=== PATIENT | male | born 1980 ===

== ENCOUNTER 2017-09-09 19:20 | Emergency (ER) | payer OTHER ==
[2017-09-09 19:38] VITALS: BP 142/73; PULSE 65; RESP 16; TEMP 97.5; O2SAT 100
--- NOTE | 2017-09-09 20:22 | ED PDOC ---
HPI: Abdomen Time Seen by Provider: 09/09/17 20:00 Chief Complaint (Nursing): Abdominal Pain Chief Complaint (Provider): abdominal pain History Per: Patient History/Exam Limitations: no limitations Onset/Duration Of Symptoms: Days, Waxing/Waning Current Symptoms Are (Timing): Gone Now Location Of Pain/Discomfort: Diffuse Quality Of Discomfort: Cramping Associated Symptoms: Nausea Additional History Per: Patient Additional Complaint(s): 37 y/o male presents with intermittent diffuse abdominal pain x 3 days. Patient admits to drinking approximately 16 ounces of wine or vodka daily this week and has not been eating much, notes symptoms to worsen after eating or drinking. Associated nausea. Denies fever, cough, congestion, vomiting, chest pain, shortness of breath, palpitations, changes in bowel movements, urinary symptoms, drug use. Past Medical History Reviewed: Historical Data, Nursing Documentation, Vital Signs Vital Signs: Last Vital Signs Temp 97.5 F L 09/09/17 19:35 Pulse 65 09/09/17 19:35 Resp 16 09/09/17 19:35 BP 142/73 09/09/17 19:35 Pulse Ox 100 09/09/17 20:22 - Medical History PMH: HTN - Surgical History Other surgeries: WPW ablation - Family History Family History: States: No Known Family Hx - Living Arrangements Living Arrangements: With Family - Social History Current smoker - smoking cessation education provided: Yes Alcohol: > 2 Drinks/Day Drugs: Denies - Home Medications Home Medications: Ambulatory Orders Medication Instructions Recorded Famotidine [Pepcid] 20 mg PO BID #20 tab 10/13/14 Lactulose 10 gm NA DAILY 7 Days 10/13/14 - Allergies Allergies/Adverse Reactions: Allergies Allergy/AdvReac Type Severity Reaction Status Date / Time No Known Allergies Allergy Verified 09/09/17 19:35 Review of Systems ROS Statement: Except As Marked, All Systems Reviewed And Found Negative Gastrointestinal: Positive for: Abdominal Pain Physical Exam - Reviewed Nursing Documentation Reviewed: Yes Vital Signs Reviewed: Yes - Physical Exam Appears: Positive for: Well, Non-toxic, No Acute Distress Head Exam: Positive for: ATRAUMATIC, NORMAL INSPECTION, NORMOCEPHALIC Skin: Positive for: Normal Color Eye Exam: Positive for: Normal appearance ENT: Positive for: Normal ENT Inspection Cardiovascular/Chest: Positive for: Regular Rate, Rhythm Respiratory: Positive for: Normal Breath Sounds Gastrointestinal/Abdominal: Positive for: Normal Exam Back: Positive for: Normal Inspection Extremity: Positive for: Normal ROM Neurologic/Psych: Positive for: Alert, Oriented - Laboratory Results Result Diagrams: 09/09/17 20:34 09/09/17 20:34 - ECG O2 Sat by Pulse Oximetry: 100 - Progress ED Course And Treament: labs, urine, IV fluids Patient resting comfortably on re-eval, remains asymptomatic. Patient educated on findings, discharged with instructions to follow up PMD 2-3 days. Encouraged fluids. Return to ED for worsening/concerning symptoms. Disposition - Clinical Impression Clinical Impression: Abdominal pain - Patient ED Disposition Is Patient to be Admitted: No Counseled Patient/Family Regarding: Studies Performed, Diagnosis, Need For Followup - Disposition Disposition: Routine/Home Disposition Time: 22:21 Condition: GOOD Instructions: Abdominal Pain (ED) Forms: [facility] (Macanese)
[2017-09-09 20:39] LABS: BASO % 0.6 % (0.0-2.0); EOS # 0.3 K/uL (0.0-0.7); EOS % 4.2 % (0.0-4.0); HEMATOCRIT 40.8 % (35.0-51.0); LYMPH % 29.7 % (20.0-40.0); MEAN CELL VOLUME 81.5 fl (80.0-94.0); MEAN CORPUSCULAR HEMOGLOBIN 28.1 pg (27.0-31.0); MEAN CORPUSCULAR HGB CONC 34.4 g/dL (33.0-37.0); MEAN PLATELET VOLUME 7.7 fl (7.2-11.7); MONO # 0.5 K/uL (0.0-0.8); NEUT # 3.9 K/uL (1.8-7.0); NEUT % 58.5 % (50.0-75.0); NRBC % 0.1 % (0.0-0.0); RED CELL DISTRIBUTION WIDTH 13.3 % (11.5-14.5); WHITE BLOOD COUNT 6.6 K/uL (4.8-10.8)
[2017-09-09 20:40] LABS: RBC URINE 1 /hpf (0-3); URINE BILIRUBIN NEGATIVE (NEGATIVE); URINE BLOOD NEGATIVE (NEGATIVE); URINE COLOR YELLOW (YELLOW); URINE GLUCOSE (UA) NEG (Normal); URINE KETONE 20 mg/dL (NEGATIVE); URINE LEUKOCYTE ESTERASE NEG Leu/uL (Negative); URINE PROTEIN NEGATIVE (NEGATIVE); URINE UROBILINOGEN 0.2-1.0 mg/dL (0.2-1.0); WBC URINE < 1 /hpf (0-5)
[2017-09-09 20:54] LABS: ALB/GLOB RATIO 1.6 (1.0-2.1); ALKALINE PHOSPHATASE 49 U/L (38-126); ALT/SGPT 61 U/L (21-72); AST/SGOT 44 U/L (17-59); BILIRUBIN,TOTAL 0.8 mg/dl (0.2-1.3); BLOOD UREA NITROGEN 28 mg/dl (9-20); CALCIUM 9.5 mg/dL (8.4-10.2); CARBON DIOXIDE 24 mmol/L (22-30); CHLORIDE 104 mmol/L (98-107); GFR AFRICAN-AMERICAN > 60; GLUCOSE,RANDOM 94 mg/dL (75-110); LIPASE 162 U/L (23-300); POTASSIUM 3.6 MMOL/L (3.6-5.0); SODIUM 139 mmol/l (132-148); TOTAL PROTEIN 7.6 G/DL (6.3-8.2)
[2017-09-09] MEDS ORDERED: Sodium Chloride 0.9% 1,000 ML IV STA (21:17)
== END 2017-09-09 22:35 | disposition home or self-care (01) ==
LOC: H.ER 19:20
DX: R10.9 Unspecified abdominal pain (principal); I10 Essential (primary) hypertension; I45.6 Pre-excitation syndrome
CPT/HCPCS: 80053; 81003; 83690; 85025; 96360; 99282; J7040

== ENCOUNTER 2017-12-21 14:45 | Emergency (ER) | payer OTHER ==
[2017-12-21 14:58] VITALS: BP 134/85; PULSE 67; RESP 16; TEMP 98.1; O2SAT 100
--- NOTE | 2017-12-21 15:47 | ED PDOC ---
HPI: Chest Pain Time Seen by Provider: 12/21/17 14:59 Chief Complaint (Nursing): Chest Pain Chief Complaint (Provider): Chest Pain History Per: Patient History/Exam Limitations: no limitations Current Symptoms Are (Timing): Still Present Quality: Pressure (and ache) Additional Complaint(s): 37 y/o male with past medical history of Ohanm-[id number] presents to the ED complaining of left sided chest pain, radiating to left neck and shoulder that started this morning while asleep. Patient describes the pain as pressure and ache and is worse with pressure on upper abdomen on the left side. Patient has not taken anything for pain. Reports cough since last 4 days that became productive yesterday. Also reports itchy sore throat but denies shortness of breath, leg swelling, fever, runny nose or any further medical complaints. PMD: Dr. 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, recent cardiology workup 09/2017 negative - Surgical History Surgical History: No Surg Hx - Family History Family History: States: Unknown Family Hx - Social History Current smoker - smoking cessation education provided: Yes Alcohol: Occasional Drugs: Denies - Home Medications Home Medications: Ambulatory Orders Medication Instructions Recorded Famotidine [Pepcid] 20 mg PO BID #20 tab 10/13/14 Lactulose 10 gm NA DAILY 7 Days 10/13/14 Doxycycline Monohydrate [Mondoxyne 100 mg PO BID #20 capsule 09/21/17 Nl] - Allergies Allergies/Adverse Reactions: Allergies Allergy/AdvReac Type Severity Reaction Status Date / Time No Known Allergies Allergy Verified 09/09/17 19:35 Review of Systems ROS Statement: Except As Marked, All Systems Reviewed And Found Negative (As per HPI, otherwise negative) Constitutional: Negative for: Fever ENT: Positive for: Throat Swelling (Sore throat). Negative for: Other (runny nose) Cardiovascular: Positive for: Chest Pain (left sided chest pain that radiates to left neck and shoulder ) Respiratory: Positive for: Cough. Negative for: Shortness of Breath Musculoskeletal: Negative for: Other (leg swelling) Physical Exam - Reviewed Nursing Documentation Reviewed: Yes Vital Signs Reviewed: Yes - Physical Exam Appears: Positive for: Well, Non-toxic, No Acute Distress Head Exam: Positive for: ATRAUMATIC, NORMAL INSPECTION, NORMOCEPHALIC Skin: Positive for: Normal Color, Warm, DRY Eye Exam: Positive for: EOMI, Normal appearance, PERRL ENT: Positive for: Normal ENT Inspection Neck: Positive for: Normal, Painless ROM Cardiovascular/Chest: Positive for: Regular Rate, Rhythm, Other (reproducible chest wall tenderness). Negative for: Murmur Respiratory: Positive for: Normal Breath Sounds. Negative for: Rales, Respiratory Distress Gastrointestinal/Abdominal: Positive for: Bowel Sounds, Soft, Tenderness ( epigastric, mild). Negative for: Mass, Distended, Guarding, Rebound Back: Positive for: Normal Inspection. Negative for: Decreased ROM Extremity: Positive for: Normal ROM. Negative for: Pedal Edema Neurologic/Psych: Positive for: Alert. Negative for: Motor/Sensory Deficits - Laboratory Results Result Diagrams: 12/21/17 16:02 12/21/17 16:02 - ECG ECG: Positive for: Interpreted By Me ECG Rhythm: Positive for: Normal QRS, Normal ST Segment, Sinus Rhythm O2 Sat by Pulse Oximetry: 100 (RA) Pulse Ox Interpretation: Normal Medical Decision Making Medical Decision Making: Time: 15:11 Initial Impression: chest pain Diffferential Diagnosis: costochondritis, muscle strain, bronchitis, pneumonia, acute coronary syndrome and pulmonary embolism Plan: EKG CMP Magnesium Phosphorous Thyroid Stimulating Hormone Troponin I CBC w/ differential D Dimer Chest x-ray Pepcid 40mg PO Iuprofen 600mg PO IV insertion (Saline Lock) Influenza A B Accession No. : [id number] Patient Name / ID : YUE PEREZ / [id number] Exam Date : 12/21/2017 15:09:30 ( Approved ) Study Comment : Sex / Age : M / 37Y Creator : Duy Laguerre MD Dictator : Duy Laguerre MD Remittance Clerk : [employer] Message Broker Developer : Duy Laguerre MD Approver2 : Report Date : 12/21/2017 16:30:33 My Comment : HISTORY: Chest pain. COMPARISON: 10/13/2014 TECHNIQUE: Chest PA and lateral FINDINGS: LUNGS: No active pulmonary disease. PLEURA: No significant pleural effusion identified. No pneumothorax apparent. CARDIOVASCULAR: Normal. OSSEOUS STRUCTURES: No significant abnormalities. VISUALIZED UPPER ABDOMEN: Normal. OTHER FINDINGS: None. IMPRESSION: No active disease. No significant interval change compared to the prior examination(s). On reeval pt eager to be discharged. DW pt findings (unremarkable labs and CXR) . Flu not resulted. Will call pt if positive. Scribe Attestation: Documented by Lorelei Sharp acting as a scribe for Khadijah Mario MD. Scribe Attestation: All medical record entries made by the Scribe were at my direction and personally dictated by me. I have reviewed the chart and agree that the record accurately reflects my personal performance of the history, physical exam, medical decision making, and the department course for this patient. I have also personally directed, reviewed, and agree with the discharge instructions and disposition. Disposition - Clinical Impression Clinical Impression: Chest wall pain Counseled Patient/Family Regarding: Studies Performed, Diagnosis, Need For Followup - Disposition Disposition: Routine/Home Disposition Time: 17:45 Condition: GOOD Instructions: Chest Pain (ED) Forms: [facility] (Bengali)
[2017-12-21 16:07] LABS: BASO % 0.5 % (0.0-2.0); EOS # 0.1 K/uL (0.0-0.7); EOS % 1.3 % (0.0-4.0); HEMOGLOBIN 13.7 g/dL (12.0-18.0); LYMPH # 1.3 K/uL (1.0-4.3); LYMPH % 20.8 % (20.0-40.0); MEAN CELL VOLUME 83.2 fl (80.0-94.0); MEAN CORPUSCULAR HEMOGLOBIN 27.5 pg (27.0-31.0); MEAN PLATELET VOLUME 7.9 fl (7.2-11.7); MONO # 0.6 K/uL (0.0-0.8); MONO % 9.7 % (0.0-10.0); NEUT # 4.2 K/uL (1.8-7.0); NEUT % 67.7 % (50.0-75.0); NRBC % 0.1 % (0.0-0.0); RBC 4.98 Mil/uL (4.40-5.90); RED CELL DISTRIBUTION WIDTH 14.3 % (11.5-14.5); WHITE BLOOD COUNT 6.2 K/uL (4.8-10.8)
[2017-12-21 16:30] LABS: ALB/GLOB RATIO 1.4 (1.0-2.1); ALBUMIN 4.6 g/dL (3.5-5.0); ALT/SGPT 45 U/L (21-72); AST/SGOT 31 U/L (17-59); BLOOD UREA NITROGEN 15 mg/dl (9-20); CALCIUM 9.6 mg/dL (8.4-10.2); GFR AFRICAN-AMERICAN > 60; GFR NON-AFRICAN AMERICAN > 60; MAGNESIUM 1.9 MG/DL (1.6-2.3)
--- NOTE | 2017-12-21 16:32 | RAD ---
HISTORY: Chest pain. COMPARISON: 10/13/2014 TECHNIQUE: Chest PA and lateral FINDINGS: LUNGS: No active pulmonary disease. PLEURA: No significant pleural effusion identified. No pneumothorax apparent. CARDIOVASCULAR: Normal. OSSEOUS STRUCTURES: No significant abnormalities. VISUALIZED UPPER ABDOMEN: Normal. OTHER FINDINGS: None. IMPRESSION: No active disease. No significant interval change compared to the prior examination(s).
--- NOTE | 2017-12-22 08:47 | CARD ---
APPROVED REPORT EKG Measurement Heart [id number] <Conclusion> Normal sinus rhythm T wave abnormality, consider inferior ischemia Abnormal ECG
== END 2017-12-21 17:57 | disposition home or self-care (01) ==
LOC: H.ER 14:45
DX: R07.89 Other chest pain (principal)

== ENCOUNTER 2018-06-15 13:35 | Emergency (ER) | payer OTHER ==
[2018-06-15 13:40] VITALS: BMI 30.5
[2018-06-15 13:46] VITALS: RESP 18
--- NOTE | 2018-06-15 14:19 | ED PDOC ---
HPI: Chest Pain Time Seen by Provider: 06/15/18 14:06 Chief Complaint (Nursing): Cough, Cold, Congestion History Per: Patient History/Exam Limitations: no limitations Current Symptoms Are (Timing): Still Present Additional Complaint(s): 37-year-old male, PMHx includes ablasion for cardiac arrythmia many years ago, presents to the emergency department with complaints of fatigue. Patient states he has been experiencing morning fatigue for the past four days. He was seen by PMD, who gave patient an Rx for bloodwork, but patient states he came in because he wanted results sooner. Patient also notes an episode of fleeting chest pain at 07:00 yesterday, which lasted no longer than one minute. He denies abdominal pain, fever, chills, nausea/vomiting, back pain, shortness of breath or any other associated symptoms. No other complaints at this time. Of note, recent cardiac monitoring shows normal sinus rhythm. Past Medical History Reviewed: Historical Data, Nursing Documentation, Vital Signs Vital Signs: Last Vital Signs Temp 97.8 F 06/15/18 13:41 Pulse 59 L 06/15/18 13:41 Resp 18 06/15/18 13:41 BP 124/77 06/15/18 13:41 Pulse Ox 100 06/15/18 14:31 - Medical History PMH: HTN, Parkinson's Disease - Family History Family History: States: No Known Family Hx - Home Medications Home Medications: Ambulatory Orders Medication Instructions Recorded Famotidine [Pepcid] 20 mg PO BID #20 tab 10/13/14 Lactulose 10 gm NA DAILY 7 Days 10/13/14 Doxycycline Monohydrate [Mondoxyne 100 mg PO BID #20 capsule 09/21/17 ] - Allergies Allergies/Adverse Reactions: Allergies Allergy/AdvReac Type Severity Reaction Status Date / Time No Known Allergies Allergy Verified 06/15/18 13:41 Review of Systems Constitutional: Negative for: Fever, Chills Cardiovascular: Positive for: Chest Pain. Negative for: Palpitations Respiratory: Negative for: Shortness of Breath Gastrointestinal: Negative for: Nausea, Vomiting, Abdominal Pain Musculoskeletal: Negative for: Neck Pain, Back Pain Neurological: Negative for: Weakness, Numbness, Headache, Dizziness Physical Exam - Reviewed Nursing Documentation Reviewed: Yes Vital Signs Reviewed: Yes - Physical Exam Appears: Positive for: Non-toxic, No Acute Distress Head Exam: Positive for: ATRAUMATIC, NORMOCEPHALIC Skin: Positive for: Normal Color, Warm, Dry. Negative for: Diaphoresis, Rash Eye Exam: Positive for: Normal appearance Neck: Positive for: Painless ROM Cardiovascular/Chest: Positive for: Regular Rate, Rhythm. Negative for: Murmur Respiratory: Positive for: Normal Breath Sounds. Negative for: Accessory Muscle Use Gastrointestinal/Abdominal: Positive for: Soft. Negative for: Tenderness Extremity: Positive for: Normal ROM. Negative for: Deformity, Swelling Neurologic/Psych: Positive for: Alert, Oriented - Laboratory Results Result Diagrams: 06/15/18 14:50 06/15/18 14:50 - ECG ECG Rhythm: Positive for: Sinus Bradycardia (sinus bradycardia no ectopy no acute changes) O2 Sat by Pulse Oximetry: 100 (RA) Pulse Ox Interpretation: Normal Medical Decision Making Medical Decision Making: Impression Fatigue and Chest pain Plan: * EKG * Bloodwork * Reassess and Disposition Progress Scribe Attestation: Documented by Dhiraj Ferrera, acting as a scribe for MIGEL Mata. Provider Scribe Attestation: All medical record entries made by the Scribe were at my direction and personally dictated by me. I have reviewed the chart and agree that the record accurately reflects my personal performance of the history, physical exam, medical decision making, and the department course for this patient. I have also personally directed, reviewed, and agree with the discharge instructions and disposition. Disposition - Clinical Impression Clinical Impression: Fatigue - Patient ED Disposition Is Patient to be Admitted: No - Disposition Disposition: Routine/Home Disposition Time: 15:51 Condition: FAIR Instructions: Fatigue (DC) Forms: [facility] ED School/Work Excuse
[2018-06-15 15:05] LABS: BASO % 0.6 % (0.0-2.0); EOS # 0.2 K/uL (0.0-0.7); EOS % 4.2 % (0.0-4.0); HEMOGLOBIN 14.6 g/dL (12.0-18.0); LYMPH # 1.8 K/uL (1.0-4.3); LYMPH % 33.6 % (20.0-40.0); MEAN CELL VOLUME 82.7 fl (80.0-94.0); MEAN CORPUSCULAR HGB CONC 33.9 g/dL (33.0-37.0); MONO # 0.4 K/uL (0.0-0.8); MONO % 7.3 % (0.0-10.0); NEUT # 2.8 K/uL (1.8-7.0); NEUT % 54.3 % (50.0-75.0); NRBC % 0.3 % (0.0-0.0); RBC 5.2 Mil/uL (4.40-5.90); RED CELL DISTRIBUTION WIDTH 13.7 % (11.5-14.5); WHITE BLOOD COUNT 5.2 K/uL (4.8-10.8)
[2018-06-15 15:24] LABS: ALB/GLOB RATIO 1.5 (1.0-2.1); ALBUMIN 4.5 g/dL (3.5-5.0); ALT/SGPT 34 U/L (21-72); AST/SGOT 26 U/L (17-59); BLOOD UREA NITROGEN 17 mg/dl (9-20); CALCIUM 9.5 mg/dL (8.4-10.2); GFR AFRICAN-AMERICAN > 60; GFR NON-AFRICAN AMERICAN > 60
[2018-06-15 16:19] VITALS: BP 128/76; PULSE 78; TEMP 98.2; O2SAT 99
--- NOTE | 2018-06-16 09:19 | CARD ---
APPROVED REPORT Date of service: 06/15/2018 EKG Measurement Heart [id number] <Conclusion> Sinus bradycardia Otherwise normal ECG
== END 2018-06-15 16:19 | disposition home or self-care (01) ==
LOC: H.ER 13:35
DX: R53.83 Other fatigue (principal); G20 Parkinson's disease; I10 Essential (primary) hypertension